=== PATIENT | male | born 1975 | race Caucasian/White ===

== ENCOUNTER 2017-12-12 07:56 | Emergency (ER) | payer OTHER ==
--- NOTE | 2017-12-12 08:08 | EDPHY ---
H & P Stated Complaint: dizziness, n/v Time Seen by Provider: 12/12/17 08:03 HPI/ROS: CHIEF COMPLAINT: Vertigo, vomiting, ataxia, visual changes HISTORY OF PRESENT ILLNESS: The patient presents to the ED with vertigo, vomiting, ataxia and visual changes for the past 2 days. The patient did have a history of strep pharyngitis approximately a month ago. The patient denies any complaints of acute headache, fall or trauma. He denies any peripheral numbness or weakness. The patient has had difficulty with ambulation and ataxia for the past 2 days. He has had multiple episodes of vomiting. He denies significant abdominal pain. The patient denies significant past medical history. The patient does complain of some diplopia and blurry vision. The patient's symptoms are worsened with positional changes and head movement. REVIEW OF SYSTEMS: A comprehensive 10 point review of systems is otherwise negative aside from elements mentioned in the history of present illness. Source: Patient Exam Limitations: No limitations - Personal History Current Tetanus/Diphtheria Vaccine: Unsure Current Tetanus Diphtheria and Acellular Pertussis (TDAP): Unsure - Medical/Surgical History Hx Asthma: No Hx Chronic Respiratory Disease: No Hx Diabetes: No Hx Cardiac Disease: No Hx Renal Disease: No Hx Cirrhosis: No Hx Alcoholism: No Hx HIV/AIDS: No Hx Splenectomy or Spleen Trauma: No Other PMH: appy - Social History Smoking Status: Former smoker - Physical Exam Exam: General Appearance: Alert, mild discomfort secondary to nausea Eyes: Pupils equal and round no pallor or injection ENT, Mouth: Mucous membranes moist Respiratory: There are no retractions, lungs are clear to auscultation Cardiovascular: Regular rate and rhythm Gastrointestinal: Abdomen is soft and nontender, no masses, bowel sounds normal Neurological: Horizontal nystagmus noted with rightward gaze, 5/5 strength all 4 extremities, cranial nerves grossly intact, unable to assess gait secondary to vertigo Skin: Warm and dry, no rashes Musculoskeletal: Neck is supple nontender Extremities: symmetrical, full range of motion Psychiatric: Patient is oriented X 3, there is no agitation Constitutional: Initial Vital Signs Temperature (C) 36.7 C 12/12/17 08:02 Heart Rate 70 12/12/17 08:02 Respiratory Rate 16 12/12/17 08:02 Blood Pressure 162/111 H 12/12/17 08:02 O2 Sat (%) 93 12/12/17 08:02 O2 Delivery Mode Room Air Allergies/Adverse Reactions: No Known Allergies Allergy (Unverified 12/12/17 08:01) Home Medications: Medication Instructions Recorded NK [No Known Home Meds] 12/12/17 Medical Decision Making - Diagnostics Imaging Results: Imaging Impressions Brain MRI 12/12/17 08:26 Impression: Normal unenhanced MR evaluation of the brain. Findings were discussed with Mook Williamson MD at 9:41, on 12/12/2017. ED Course/Re-evaluation: The patient presents to the ED with vertigo, reported ataxia and vision changes. The patient was noted to have horizontal nystagmus on exam. The patient did have a negative Sera-Hallpike test. Given his complaints of ataxia in vision changes an MRI of the brain was obtained to evaluate for central vertigo. Fortunately the results of this study were normal. The patient was treated with IV Phenergan and meclizine in the emergency department. The patient was reexamined at 9:50 a.m. The patient continues to have ongoing symptoms of vertigo. He is ambulatory with assistance. The patient will be discharged home with a prescription for Valium, meclizine and Zofran. He is referred to our on-call ENT physician. He is given instructions to return to the ED for any markedly worsening symptoms or other concerns. Differential Diagnosis: Differential diagnosis considered includes central vertigo, benign positional vertigo, labyrinthitis - Data Points Laboratory Results: Laboratory Results 12/12/17 08:15 12/12/17 08:15 12/12/17 12/12/17 08:15 08:15 WBC 10.31 10^3/uL H 10^3/uL (3.80-9.50) RBC 5.66 10^6/uL 10^6/uL (4.40-6.38) Hgb 17.2 g/dL g/dL (13.7-17.5) Hct 49.2 % % (40.0-51.0) MCV 86.9 fL fL (81.5-99.8) MCH 30.4 pg pg (27.9-34.1) MCHC 35.0 g/dL g/dL (32.4-36.7) RDW 12.5 % % (11.5-15.2) Plt Count 322 10^3/uL 10^3/uL (150-400) MPV 8.6 fL L fL (8.7-11.7) Neut % (Auto) 64.9 % % (39.3-74.2) Lymph % (Auto) 23.4 % % (15.0-45.0) [place] % (Auto) 8.4 % % (4.5-13.0) Eos % (Auto) 2.0 % % (0.6-7.6) Baso % (Auto) 0.9 % % (0.3-1.7) Nucleat RBC Rel Count 0.0 % % (0.0-0.2) Absolute Neuts (auto) 6.69 10^3/uL H 10^3/uL (1.70-6.50) Absolute Lymphs (auto) 2.41 10^3/uL 10^3/uL (1.00-3.00) Absolute Monos (auto) 0.87 10^3/uL H 10^3/uL (0.30-0.80) Absolute Eos (auto) 0.21 10^3/uL 10^3/uL (0.03-0.40) Absolute Basos (auto) 0.09 10^3/uL 10^3/uL (0.02-0.10) Absolute Nucleated RBC 0.00 10^3/uL 10^3/uL (0-0.01) Immature Gran % 0.4 % % (0.0-1.1) Immature Gran # 0.04 10^3/uL 10^3/uL (0.00-0.10) Sodium 141 mEq/L mEq/L (135-145) Potassium 4.0 mEq/L mEq/L (3.3-5.0) Chloride 107 mEq/L mEq/L (97-110) Carbon Dioxide 23 mEq/l mEq/l (22-31) Anion Gap 11 mEq/L mEq/L (8-16) BUN 15 mg/dL mg/dL (7-23) Creatinine 0.8 mg/dL mg/dL (0.7-1.3) Estimated GFR > 60 Glucose 124 mg/dL H mg/dL (70-100) Calcium 9.6 mg/dL mg/dL (8.5-10.4) Total Bilirubin 0.6 mg/dL mg/dL (0.1-1.4) Conjugated Bilirubin 0.1 mg/dL mg/dL (0.0-0.5) Unconjugated Bilirubin 0.5 mg/dL mg/dL (0.0-1.1) AST 29 IU/L IU/L (17-59) ALT 38 IU/L IU/L (21-72) Alkaline Phosphatase 74 IU/L IU/L (38-126) Total Protein 7.5 g/dL g/dL (6.3-8.2) Albumin 4.2 g/dL g/dL (3.5-5.0) Lipase 50 IU/L IU/L (23-300) Medications Given: Discontinued Medications Sodium Chloride (Ns) 1,000 mls @ 0 mls/hr IV EDNOW ONE; Wide Open PRN Reason: Protocol Stop: 12/12/17 08:19 Last Admin: 12/12/17 08:24 Dose: 1,000 mls Meclizine HCl (Meclizine Hcl) 25 mg PO EDNOW ONE Stop: 12/12/17 08:27 Last Admin: 12/12/17 08:29 Dose: 25 mg Promethazine HCl (Phenergan) 12.5 mg IVP ONCE ONE Stop: 12/12/17 08:26 Last Admin: 12/12/17 08:29 Dose: 12.5 mg Departure - Departure Disposition: Home, Routine, Self-Care Clinical Impression: Benign positional vertigo Condition: Good Instructions: Vertigo (ED) Additional Instructions: 1. Meclizine as needed for vertigo. 2. Zofran as needed for nausea. 3. Valium as needed for vertigo 4. Please follow up with the Ear Nose Throat specialist you have been referred to for any persistent symptoms. Referrals: Tea Anders MD [Medical Doctor] - As per Instructions
[2017-12-12] MEDS ORDERED: NS 1,000 ML IV ONE (08:18)
[2017-12-12 08:24] LABS: PLATELET COUNT 322 10^3/uL (150-400)
[2017-12-12] MEDS ORDERED: PROMETHAZINE HCL 25 MG/ML INJ IVP ONE (08:25)
[2017-12-12] MEDS ORDERED: MECLIZINE HCL 25 MG TAB PO ONE (08:26)
[2017-12-12 10:56] VITALS: BP 145/70
== END 2017-12-12 10:56 | disposition home or self-care (01) ==
DX: H81.10 Benign paroxysmal vertigo, unspecified ear (principal); R27.0 Ataxia, unspecified; R11.10 Vomiting, unspecified; E86.9 Volume depletion, unspecified; Z87.891 Personal history of nicotine dependence
CPT/HCPCS: 96374; J2550

== ENCOUNTER 2018-01-14 13:31 | Emergency (ER) | payer OTHER ==
[2018-01-14] MEDS ORDERED: TDAP ADULT 0.5 ML INJ (BOOSTRIX) IM ONE (13:58)
[2018-01-14] MEDS ORDERED: LET GEL TOPICAL 1 EA SYR TP ONE ×2 (13:59→14:46)
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
[2018-01-14 15:15] VITALS: BP 168/104
== END 2018-01-14 15:14 | disposition home or self-care (01) ==
DX: S06.0X9A Concussion with loss of consciousness of unspecified duration, initial encounter (principal); S43.102A Unspecified dislocation of left acromioclavicular joint, initial encounter; T14.8XXA Other injury of unspecified body region, initial encounter; V19.3XXA Pedal cyclist (driver) (passenger) injured in unspecified nontraffic accident, initial encounter; Y93.55 Activity, bike riding; Z23 Encounter for immunization
CPT/HCPCS: A4565